=== PATIENT | male | born 1985 | race Caucasian/White ===

== ENCOUNTER 2024-12-01 10:45 | Outpatient (AMB) | payer BC, SELFPAY ==
--- NOTE | 2024-12-01 10:46 | A.OFFPC_ITS ---
Vital Signs 12/01/24 10:56 Height 5 ft 10.28 in Weight 168 lb BMI 23.9 BP 130/86 Blood Pressure Location Rt brachial Position Sitting Respiration 16 Pulse 64 Pulse Source Pulse Oximeter Temp 97.7 F Temp Source Oral Pulse Oximetry (%) 99 Oxygen Delivery Method Room Air Intake Visit Reasons: [employer]-Anxiety and adhd Intake Note: establish care Engineer Internship Required: No Accompanied by: Self / Same As Patient Allergies No Known Allergies Allergy (Verified 12/01/24 10:47) Tobacco use date assessed: 12/01/24 Dental Screening Dental Screen Date: 12/01/24 Did you have a dental visit in the last 12 months?: Yes Did you have a dental problem in the last 6 months where you did not have access to dental care?: No Was dental information given to patient?: Patient has dentist HPI HPI Comments History of Present Illness Details History of Present Illness The patient is a 39-year-old male presenting for a new primary care visit and evaluation of fatigue. Tourette syndrome: - The patient has a history of Tourette syndrome managed with medication on an as-needed basis. - He has not seen his neurologist for a few years but typically checks in for medication refills. Attention Deficit Hyperactivity Disorder (ADHD): - The patient manages ADHD with Ritalin, taken as needed for concentration, particularly during study periods. Fatigue: - The patient reports decreased energy l evels since turning 39, despite maintaining an active lifestyle. - He has requested a testosterone level check to evaluate potential causes of f atigue. Health Maintenance - Comprehensive lab workup including CBC , CMP, lipid panel, hormone levels, and screening for hepatitis B, C, and HIV. - Discussion on the importance of hydrat ion and its impact on energy levels. Review of Systems - Neurological: Reports fatigue and decr eased energy levels. Denies headaches or daytime sleepiness. - Respiratory: Denies snoring or waking up tired. - General: Reports occasional fatigue re lated to hydration status. 10-point ROS reviewed and negative excep t as noted in HPI Past Medical History - Tourette syndrome, managed with medica tion as needed. - Attention Deficit Hyperactivity Disord er (ADHD), managed with Ritalin as needed. Physical Exam General: Well-appearing, in no acute distress. Vital signs: Within normal limits. HEENT: Normocephalic, atraumatic. PERRLA, EOMI. Conjunctiva clear, sclera anicteric. Oropharynx clear, mucous membranes moist. TMs intact bilaterally. Neck: Supple, no lymphadenopathy, no thyromegaly, no JVD or carotid bruits. Cardiovascular: RRR, normal S1/S2, no murmurs, rubs, or gallops. Peripheral pulses 2+ and symmetric. No edema. Respiratory: Lungs clear to auscultation bilaterally, no wheezes, rales, or rhonchi. Normal effort. Abdomen: Soft, non-tender, non-distended. Normoactive bowel sounds. No hepatosplenomegaly, no masses. MSK: Full range of motion, no joint swelling or deformity. Normal gait. Skin: Warm, dry, intact. No rashes, lesions, or pallor. Neuro: Alert and oriented x3. Cranial nerves II-XII intact. Strength 5/5 throughout. Sensation intact. Reflexes 2+ symmetric. Normal coordination and gait. Psych: Appropriate mood and affect. Normal judgment and insight. Discussion Notes I discussed with the patient the plan to conduct a comprehensive lab workup to assess his overall health status, including CBC, CMP, lipid panel, and hormone levels. We also talked about the importance of maintaining hydration and its impact on energy levels. I assured him that I would coordinate any necessary referrals, including to his neurologist, and encouraged him to reach out with any questions or concerns. Plan 1. Tourette's disorder F95.2 - Continue current medication regimen as needed. Coordinate with neurologist for follow-up and medication management. 2. Attention-deficit hyperactivity disor whit[place], unspecified type F90.9 - Continue Ritalin as needed for concent ration. Monitor for any changes in symptoms or medication needs. 3. Other fatigue R53.83 - Conduct comprehensive lab workup inclu ding testosterone levels to evaluate potential causes of fatigue. - Encourage adequate hydration and monit or energy levels. Patient Instructions - Continue taking medications for Touret te syndrome and ADHD as needed. - Stay hydrated to help maintain energy levels. - Follow up with neurologist for medicat ion management. - Complete lab workup as discussed to ev aluate overall health. [facility] Medical History (Updated 12/01/24 @ 11:10 by Jorge Alberto Hayes MD) Fatigue Family History (Updated 12/01/24 @ 10:55 by Jefe Bhatt MA) Father Throat cancer Prostate cancer Mother No problems noted. Social History (Updated 12/01/24 @ 10:48 by Jefe Bhatt MA) Housing: House Alcohol intake: current Alcohol intake frequency: does not drink Patient Tobacco Use Status: Never used Tobacco service: No Current occupational status: employed Cognitive needs: No Hearing needs: No Vision needs: No Questionnaire PHQ-9 Over the last 2 weeks, how often have you been bothered by any of the following problems? 1. Little interest or pleasure in doing things: not at all 2. Feeling down, depressed, or hopeless: not at all 3. Trouble falling or staying asleep, or sleeping too much: not at all 4. Feeling tired or having little energy: several days 5. Poor appetite or overeating: not at all 6. Feeling bad about yourself - or that you are a failure or have let yourself or your family down: not at all 7. Trouble concentrating on things, such as reading the newspaper or watching television: not at all 8. Moving or speaking so slowly that other people could have noticed. Or the opposite - being so fidgety or restless that you have been moving around a lot more than usual: not at all 9. Thoughts that you would be better off or of hurting yourself in some way: not at all Total score: 1 Source: Developed by Drs. Collin Mccartney, Paloma Anthony, Donald Campuzano and colleagues, with an educational sandro from [employer]. Thrive Questionnaire Date Thrive assessed: 12/01/24 I am a: Patient What is your living situation today?: I have a steady place to live Within the past 12 months, did the food you bought not last and you didn't have the money to get more?: Never true Within the past 12 months, did you worry whether your food would run out before you got money to buy more?: Never true Do you have trouble paying for medicines?: No Do you have trouble getting transportation to medical appointments?: No Do you have trouble paying your heating and electricity bill?: No Do you have trouble taking care of your child, family member or friend?: No Do you have trouble with day-to-day activities such as bathing, preparing meals, shopping, managing finances, etc.?: No Are you currently unemployed and looking for a job?: No Are you interested in more education?: No Please select the resources that you would like help with: None Currently or been in a relationship where the following occur: No concerns reported THRIVE Score: 0 AUDIT C Alcohol Use Questionnaire (AUDIT-C) 1. How often do you have a drink containing alcohol?: Never 3. How often do you have six or more drinks on one occasion?: Never Total Score: 0 OTTO-7 AMB Questionnaire OTTO-7 Date OTTO - 7 assessed: 12/01/24 Feeling nervous, anxious, or on edge: 0 = Not at all Not being able to stop or control worryin = Not at all Worrying too much about different things: 0 = Not at all Trouble relaxin = Not at all Being so restless that it is hard to sit still: 0 = Not at all Becoming easily annoyed or irritable: 0 = Not at all Feeling afraid as if something awful might happen: 0 = Not at all Total OTTO-7 score (0-4 normal; 5-9 mild; 10-14 moderate; 15-21 severe): 0 Source: Developed by Drs. Collin Mccartney, Paloma Anthony, Donald Campuzano and colleagues, with an educational sandro from [employer]. Physical exam (Primary Care) Tobacco/Smoking Status: Tobacco use Status Patient Tobacco Use Status Never used Tobacco 12/01/24 10:48 Thrive Assessment: Date of Thrive Assessment Date Thrive assessed 11/28/24 11/28/24 14:41 Currently or been in a relationship where the following occur: No concerns reported Coding Level of Care Code New Pt Level 3 (18948) Diagnoses Encounter to establish care Z76.89 Encounter for screening, unspecified Z13.9 Screening for depression Z13.31 Screening for diabetes mellitus Z13.1 Screening for lipoid disorders Z13.220 Routine screening for STI (sexually transmitted infection) Z11.3 Screening for HIV (human immunodeficiency virus) Z11.4 Hypertension screen Z13.6 Counseling, unspecified Z71.9 Fatigue R53.83 Tourettes disorder F95.2 ADHD (attention deficit hyperactivity disorder) F90.9 Assessment & Plan Assessment & Plan (1) Encounter to establish care: Code(s): Z76.89 - Persons encountering health services in other specified circumstances (2) Encounter for screening, unspecified: Code(s): Z13.9 - Encounter for screening, unspecified (3) Screening for depression: Code(s): Z13.31 - Encounter for screening for depression (4) Screening for diabetes mellitus: Code(s): Z13.1 - Encounter for screening for diabetes mellitus (5) Screening for lipoid disorders: Code(s): Z13.220 - Encounter for screening for lipoid disorders (6) Routine screening for STI (sexually transmitted infection): Code(s): Z11.3 - Encounter for screening for infections with a predominantly sexual mode of transmission (7) Screening for HIV (human immunodeficiency virus): Code(s): Z11.4 - Encounter for screening for human immunodeficiency virus [HIV] (8) Hypertension screen: Code(s): Z13.6 - Encounter for screening for cardiovascular disorders (9) Counseling, unspecified: Code(s): Z71.9 - Counseling, unspecified (10) Fatigue: Code(s): R53.83 - Other fatigue Category: Medical (11) Tourettes disorder: Code(s): F95.2 - Tourette's disorder (12) ADHD (attention deficit hyperactivity disorder): Code(s): F90.9 - Attention-deficit hyperactivity disorder, unspecified type Plan Orders: Orders Comprehensive Met. Panel Today R53.83 - Other fatigue, Z13.9 - Encounter for screening, unspecified, Z76.89 - Persons encountering health services in other specified circumstances Hepatitis B Surface Antibody Today R53.83 - Other fatigue, Z13.9 - Encounter for screening, unspecified, Z76.89 - Persons encountering health services in other specified circumstances Hepatitis B Surface Antigen Today R53.83 - Other fatigue, Z13.9 - Encounter for screening, unspecified, Z76.89 - Persons encountering health services in other specified circumstances HIV Ab/Ag Today R53.83 - Other fatigue, Z13.9 - Encounter for screening, unspecified, Z76.89 - Persons encountering health services in other specified circumstances Magnesium Today R53.83 - Other fatigue, Z13.9 - Encounter for screening, unspecified, Z76.89 - Persons encountering health services in other specified circumstances UA CC w/rflx Micro + Cult Today R53.83 - Other fatigue, Z13.9 - Encounter for screening, unspecified, Z76.89 - Persons encountering health services in other specified circumstances TSH reflex Free T4 Today R53.83 - Other fatigue, Z13.9 - Encounter for screening, unspecified, Z76.89 - Persons encountering health services in other specified circumstances Complete Blood Count Auto Diff Today R53.83 - Other fatigue, Z13.9 - Encounter for screening, unspecified, Z76.89 - Persons encountering health services in other specified circumstances Hemoglobin A1c Today R53.83 - Other fatigue, Z13.9 - Encounter for screening, unspecified, Z76.89 - Persons encountering health services in other specified circumstances Hepatitis C Antibody Today R53.83 - Other fatigue, Z13.9 - Encounter for screening, unspecified, Z76.89 - Persons encountering health services in other specified circumstances Lipid Panel Today R53.83 - Other fatigue, Z13.9 - Encounter for screening, unspecified, Z76.89 - Persons encountering health services in other specified circumstances Vitamin B12 and Folate Today R53.83 - Other fatigue, Z13.9 - Encounter for screening, unspecified, Z76.89 - Persons encountering health services in other specified circumstances Vitamin D 1,25 dihydroxy Today R53.83 - Other fatigue, Z13.9 - Encounter for screening, unspecified, Z76.89 - Persons encountering health services in other specified circumstances Testosterone, Free/Total Today R53.83 - Other fatigue, Z13.9 - Encounter for screening, unspecified, Z76.89 - Persons encountering health services in other specified circumstances
[2024-12-01 10:56] VITALS: BP 130/86; PULSE 64; RESP 16; TEMP 36.5; O2SAT 99; BMI 23.9
--- OUTSIDE RECORDS SUMMARY | 2024-12-01 12:53 | XMS_ITS | Encounter Summary ---
Author Organization [facility] Address [address] [place] [address] Phone Care Team Providers Care Lime Trimmer Name Role Phone Bob Duvall MD Unavailable [phone] Bob Duvall MD Primary Care Provider [phone] Bob Duvall MD Unavailable [phone] Encounter Details Date Type Department Care Team (Latest Contact Info) Description 12/19/2021 Transcribe Orders [facility] Laboratory 10 [facility] 2nd [place] [address] Glenny Olivares PA-C [address] [place], [place] [id number] Elevated LFTs (Primary Dx) Social History Tobacco Use Types Packs/Day Years Used Date Smoking Tobacco: Never Smokeless Tobacco: Never Alcohol Use Standard Drinks/Week Comments Not Currently 0 (1 standard drink = 0.6 oz pur e alcohol) Child or Family Care Answer Date Record ed Do you have problems with on e of the following making it difficult for you to work, study, or receive health care? No 08/21/2020 Education Answer Date Recorded Are you interested in help w ith more adult education (for example, completing high school, GED, job training, learning the Uruguayan language, technical skills, or developing parenting skills)? No 08/21/2020 Food Answer Date Recorded Within the past 6 months we worried whether our food would run out before we got money to buy more. Never True 08/21/2020 Within the past 6 months the food we bought just didn't last and we didn't have enough money to get more. Never True Residential Stability Answer Date Recor ded What is your housing situation today? I have kindra maldonado 08/21/2020 How many times have you move d in the past 12 months? Zero (I did not move) 08/21/2020 06 Are you worried that in t he next 2 months, you may not have your own housing to live in? No 08/21/2020 Paying for Meds Answer Date Recorded Do you have trouble paying for medicines? No 08/21/2020 Paying Utility Bills Answer Date Record ed Do you have trouble paying your heating or elect ricity bill? No 08/21/2020 Transportation Answer Date Recorded Has the lack of transportati on kept you from medical appointments or from getting medications? No 08/21/2020 Unemployment Answer Date Recorded Are you currently unemployed or working on a part-time or temporary basis, and looking for work? No 08/21/2020 Sex and Gender Information Value Date Recorded Sex Assigned at Not on file Legal Sex Male 9:15 PM EDT Gender Identity Not on file Sexual Orientation Not on file documented as of this encounter Plan of Treatment Not on file documented as of this encounter Results * (ABNORMAL) Copper, 24 hr urine (12/26/2021 6:40 AM EDT) UR TIMED COPPER <5(L) 9 - 71 mcg/24 h [facility] LAB MED/PATH SUPERIOR COLLECTION DURATION 24 h [facility] LAB MED/PATH SUPERIOR TOTAL VOLUME 3,000 mL [facility] LAB MED/PATH SUPERIOR Comment: (NOTE) ADDITIONAL INFORMATION This test was developed and its performance characteristics determined by [facility] in a manner consistent with CLIA requirements. This test has not been cleared or approved by the U.S. Food and Drug Administration. Urine (Urine) 12/26/2021 6:4 0 AM EDT 12/27/2021 8:10 AM EDT us Glenny Olivares PA-C URINE ORDERABLES Final Result [facility]PATH [facility]IOR [address] [address] * TSH (12/19/2021 1:51 PM EDT) Pathologist [facility] TSH 0.84 0.27 - 4.20 uIU/mL [facility] Blood 12/19/2021 1:51 PM EDT 12/19/2021 1:58 PM EDT us Glenny Olivares PA-C LAB BLOOD ORDERABLES Final Resu lt Performing Organization Address [facility]/ZIP Co de Phone Number [address] [address] * Iron and iron binding capacity (12/19/2021 1:51 PM EDT) [facility] IRON 113 45 - 160 ug/dL [facility] IRON BINDING CAPACITY 270 228 - 428 ug/dL [facility] TRANSFERRIN SATURAT. 42 20 - 55 % [facility] Blood 12/19/2021 1:51 PM EDT 12/19/2021 1:58 PM EDT us Glenny Olivares PA-C LAB BLOOD ORDERABLES Final Resu lt Performing Organization Address [facility]/ZIP Co de Phone Number [address] [address] * (ABNORMAL) Comprehensive metabolic panel (12/19/2021 1:51 PM EDT) [facility] SODIUM 143 133 - 146 mmol/L [facility] POTASSIUM 3.8 3.3 - 5.1 mmol/L [facility] CHLORIDE 104 96 - 108 mmol/L [facility] CO2 30 21 - 35 mmol/L [facility] BUN 14 6 - 19 mg/dL [facility] CREATININE 0.80 0.5 - 1.5 mg/dL [facility] GLUCOSE 73 70 - 99 mg/dL [facility] ALBUMIN 4.9(H) 3.9 - 4.8 g/dL [facility] TOTAL PROTEIN 7.0 6.5 - 8.0 g/dL [facility] CALCIUM 9.7 8.4 - 10.3 mg/dL [facility] ALKALINE PHOSPHATASE 68 39 - 117 U/L [facility] TOTAL BILIRUBIN 3.5(H) 0.0 - 1.2 mg/dL [facility] AST 37 0 - 37 U/L [facility] ALT 28 0 - 40 U/L [facility] GLOBULIN 2.1 1 - 4.8 g/dL [facility] EGFR 117 >59 mL/min/1.7 3m2 [facility] Comment:Estimated glomerular filtration rate calculated using the CKD-EPI refit equation. ANION GAP 13 10 - 20 mmol/L [facility] Blood 12/19/2021 1:51 PM EDT 12/19/2021 1:58 PM EDT us Glenny Olivares PA-C LAB BLOOD ORDERABLES Final Resu lt Performing Organization Address City/State/[facility] Co de Phone Number [address] [address] * (ABNORMAL) Liver fibrosis test (12/19/2021 1:51 PM EDT) Fibrosis score 0.35 [facility] Interpretation (Fibrosis) SEE NOTE [facility] Comment: (NOTE) minimal fibrosis Fibro Test Score (f) Metavir Score f>=0 and f<=0.21 : F0 (no fibrosis) f>0.21 and f<=0.27 : F0-F1 (no fibrosis) f>0.27 and f<=0.31 : F1 (minimal fibrosis) f>0.31 and f<=0.48 : F1-F2 (minimal fibrosis) f>0.48 and f<=0.58 : F2 (moderate fibrosis) f>0.58 and f<=0.72 : F3 (advanced fibrosis) f>0.72 and f<=0.74 : F3-F4 (advanced fibrosis) f>0.74 and f<=1.00 : F4 (severe fibrosis) HCV Fibrosis Grade SEE NOTE Q [facility] Comment: (NOTE) Result: F1-F2 NECROINFLAMM SCORE 0.13 Q [facility] NECROINFLAMM GRADE A0 Q [facility] NECROINFLAMM INTERP SEE NOTE [facility]/ [facility] Comment: (NOTE) no activity ActiTest Score (a) Metavir Score a>=0 and a<=0.17 : A0 (no activity) a>0.17 and a<=0.29 : A0-A1 (no activity) a>0.29 and a<=0.36 : A1 (minimal activity) a>0.36 and a<=0.52 : A1-A2 (minimal activity) a>0.52 and a<=0.60 : A2 (significant activity) a>0.60 and a<=0.62 : A2-A3 (significant activity) a>0.62 and a<=1.00 : A3 (severe activity) A2 Macroglobulin 199 106 - 279 mg/dL [facility]/ [facility] Haptoglobin 92 43 - 212 mg/dL [facility] Apolipoprotein A1 163 94 - 176 mg/dL [facility]/ [facility] TOTAL BILIRUBIN 3.8(H) 0.2 - 1.2 mg/dL [facility]/ [facility] Comment: (NOTE) Suspicion of Gilbert syndrome or hemolysis, check non conjugated bilirubin. GGT 9 3 - 90 U/L [facility]/ [facility] Comment: (NOTE) Suspicion of Gilbert syndrome or hemolysis, check non conjugated bilirubin. ALT 26 9 - 46 U/L [facility]/ [facility] Specimen/Product ID [id number] [facility]/ [facility] Comments (Chemistry) SEE NOTE [facility]/ [facility] Comment: (NOTE) The reliability of results is dependent on compliance with the preanalytical and analytical conditions recommended by [employer]. The tests have to be deferred for: acute hemolysis, acute hepatitis, acute inflammation, extra hepatic cholestasis. The advice of a specialist should be sought for interpretation in chronic hemolysis and Gilbert's syndrome. The test interpretation is not validated in liver transplant patients. Isolated extreme values of one of the components should lead to caution in interpreting the results. In case of discordance between a biopsy result and a test, it is recommended to seek the advice of a specialist. The causes of these discordances could be due to a flaw of the test or to a flaw in the biopsy: i.e. a liver biopsy has a 33% variability rate for one fibrosis stage. FibroTest is interpretable for chronic hepatitis B and C, alcoholic and non alcoholic steatosis. ActiTest is interpretable for chronic hepatitis B and C. The performance characteristics have been determined by [facility]. It has not been cleared or approved by the U.S. Food and Drug Administration. Performance characteristics refer to the analytical performance of the test. Cinnamon, the associated logo, Flipter and all associated [employer] are the registered trademarks of [employer]. All third libertarian garduno - (R) and (TM) - are the property of their respective owners. (C) [id number] [employer]. All rights reserved. Blood 12/19/2021 1:51 PM EDT 12/19/2021 1:58 PM EDT Glenny Olivares PA-C LAB BLOOD ORDERABLES Final Resu lt [employer] [facility] [address] [place] [address], [facility] * (ABNORMAL) Ceruloplasmin (12/19/2021 1:51 PM EDT) CERULOPLASMIN 16(L) 20 - 60 mg/dL [facility] Blood 12/19/2021 1:51 PM EDT 12/19/2021 1:58 PM EDT Glenny ROME-Senia LAB BLOOD ORDERABLES Final Resu lt [facility] [address] [place] [address] * Immunoglobulin A (12/19/2021 1:51 PM EDT) IgA 268 70 - 400 mg/dL [facility] Blood 12/19/2021 1:51 PM EDT 12/19/2021 1:58 PM EDT us Glenny Olivares PA-C LAB BLOOD ORDERABLES Final Resu lt [facility] [address] [place] [address] * Tissue transglutaminase IgA (12/19/2021 1:51 PM EDT) TTG IGA ANTIBODY <1.2 <4.0 (Negative) U/mL [facility] Blood 12/19/2021 1:51 PM EDT 12/19/2021 1:58 PM EDT us Glenny Olivares PA-C LAB BLOOD ORDERABLES Final Resu lt Performing Organization Address [facility] Co de Phone Number [facility]/PATH [address] [place] [address] * Smooth Muscle Antibody (12/19/2021 1:51 PM EDT) SMOOTH MUSCLE AB POSITIVE AT 1:80 [facility] Comment: Performing Physician, Klaus García M.D., [id number] Normal: Negative at 1:20 Blood 12/19/2021 1:51 PM EDT 12/19/2021 1:58 PM EDT Glenny Olivares PA-C LAB BLOOD ORDERABLES Final Resu lt Performing Organization Address City/[facility]/ZIP Co de Phone Number [address] [address] * Ytydl-6-gcydvpmkxgq phenotyping (12/19/2021 1:51 PM EDT) ALPHA 1 ANTITRYPSIN 127 100 - 190 mg/dL [facility]PATH [facility]IOR Comment: (NOTE) ADDITIONAL INFORMATION Method: Nephelometry A1A PHENOTYPE MM bands [facility] LAB MED/PATH SUPERIOR Comment: (NOTE) A single M isoform is detected. In the context of a normal ejajc-8-zsyojddksiu concentration, this is consistent with an MM phenotype. ADDITIONAL INFORMATION Method: Isoelectric Focusing, This assay identifies the phenotype of the circulating prkuf-2-bpqtvmtpwlc (A1A) protein. If the patient is on replacement therapy or has been recently transfused, the phenotype will detect patient and replacement or transfused plasma A1A protein. This test also cannot detect a null allele which could be responsible for an A1A deficiency. Blood 12/19/2021 1:51 PM EDT 12/19/2021 1:58 PM EDT us Glenny Olivares PA-C LAB BLOOD ORDERABLES Final Resu lt [facility]/PATH [facility] [address] [place] [address] documented in this encounter Visit Diagnoses Diagnosis Elevated LFTs- Primary Other abnormal blood chemistry documented in this encounter Additional Health Concerns Assessment Noted Time PHQ-2 Depression Total Score: 0 08/19/19 22 9:00 AM EDT documented as of this encounter Care Teams Lime Trimmer Relationship Specialty Start Date End Date Bob Duvall MD [address] [place] [address], [address] [address] PCP - General 12/29/16 10/20/24 Bob Duvall MD [address] [place] [address], [address] [place] [address] Historical LMR Provider 12/29/16 10/20/24 Bob Duvall MD [address] [place] [address], [address] [place] [address] Insurance Assigned Provider 07/19/22 documented as of this encounter Additional Source Comments The information contained in this document represents components of the legal health record. It is not the complete legal health record.[facility]
--- OUTSIDE RECORDS SUMMARY | 2024-12-01 12:53 | XMS_ITS | Encounter Summary ---
Author Organization [facility] Address [address] [place] [address] Phone Care Team Providers Care Correctional Counselor Name Role Phone Bob Duvall MD Unavailable [phone] Bob Duvall MD Primary Care Provider [phone] Bob Duvall MD Unavailable [phone] Encounter Details Date Type Department Care Team (Latest Contact Info) Description 02/10/2022 Transcribe Orders [facility] Laboratory [address] 2[address] Floor [place], [place] [id number] Guy Huntley MD [address] [facility] 2 [place], [place] [phone] [email or web address] Gilbert's syndrome (Primary Dx) Social History Tobacco Use Types [...] high school, GED, job training, learning the Georgian language, technical skills, or developing parenting skills)? [...] documented as of this encounter Results * LDH (02/17/2022 7:51 AM EST) LDH 138 118 - 273 U/L [facility] Blood 02/17/2022 7:51 AM EST 02/17/2022 7:56 AM EST us Guy Huntley MD LAB BLOOD ORDERABLES Final R esult [facility] [address] [place] [address] * C-Reactive Protein (02/17/2022 7:51 AM EST) C REACTIVE PROTEIN <3.0 0.0 - 4.0 mg/L [facility] Blood 02/17/2022 7:51 AM EST 02/17/2022 7:56 AM EST us Guy Huntley MD LAB BLOOD ORDERABLES Final R esult [address] [address] * (ABNORMAL) Comprehensive metabolic panel (02/17/2022 7:51 AM EST) SODIUM 142 133 - 146 mmol/L [facility] POTASSIUM 4.3 3.3 - 5.1 mmol/L [facility] CHLORIDE 103 96 - 108 mmol/L [facility] CO2 30 21 - 35 mmol/L [facility] BUN 10 6 - 19 mg/dL [facility] CREATININE 0.80 0.5 - 1.5 mg/dL [facility] GLUCOSE 94 70 - 99 mg/dL [facility] ALBUMIN 4.5 3.9 - 4.8 g/dL [facility] TOTAL PROTEIN 6.9 6.5 - 8.0 g/dL [facility] CALCIUM 9.6 8.4 - 10.3 mg/dL [facility] ALKALINE PHOSPHATASE 62 39 - 117 U/L [facility] TOTAL BILIRUBIN 2.5(H) 0.0 - 1.2 mg/dL [facility] AST 23 0 - 37 U/L [facility] ALT 26 0 - 40 U/L [facility] GLOBULIN 2.4 1 - 4.8 g/dL [facility] EGFR 117 >59 mL/min/1.7 3m2 [facility] Comment:Estimated glomerular filtration rate calculated using the CKD-EPI refit equation. ANION GAP 13 10 - 20 mmol/L [facility] Blood 02/17/2022 7:51 AM EST 02/17/2022 7:56 AM EST us Guy Huntley MD LAB BLOOD ORDERABLES Final R esult [address] [address] * Miscellaneous lab test (02/10/2022 2:51 PM EST) TESTS REQUESTED [facility] SPECIMEN/TUBE TYPE LAV [facility] REQUEST RECEIVED Request received. A separate order for the requested test will be generated by the laboratory. [facility] Blood 02/10/2022 2:51 PM EST 02/10/2022 3:09 PM EST Guy Huntley MD LAB BLOOD ORDERABLES Final R esult Performing Organization Address [facility] Co de Phone Number [facility] [address] [place] [address] * Haptoglobin (02/10/2022 2:51 PM EST) HAPTOGLOBIN 71 30 - 200 mg/dL [facility] Blood 02/10/2022 2:51 PM EST 02/10/2022 2:57 PM EST Guy Huntley MD LAB BLOOD ORDERABLES Final R esult Performing Organization Address [facility] Co de Phone Number [address] [address] * Direct Hermelinda (02/10/2022 2:51 PM EST) Direct Hermelinda Poly Negative [facility] Resulting Agency [facility] Blood 02/10/2022 2:51 PM EST 02/10/2022 3:10 PM EST Guy Huntley MD BLOOD BANK TEST ORDERABLES F inal Result Performing Organization Address [facility] Co de Phone Number [facility] [address] [place] [address] * (ABNORMAL) Copper, blood (02/10/2022 2:51 PM EST) Copper, serum 70(L) 73 - 129 mcg/dL [facility] MED[facility] Comment: (NOTE) ADDITIONAL INFORMATION This test was developed and its performance characteristics determined by [facility] in a manner consistent with CLIA requirements. This test has not been cleared or approved by the U.S. Food and Drug Administration. Blood 02/10/2022 2:51 PM EST 02/10/2022 3:09 PM EST Guy Huntley MD LAB BLOOD ORDERABLES Final R [facility] [address] [place] [address] * CBC (02/10/2022 2:51 PM EST) WBC 6.78 4.00 - 11.00 K/uL [facility] RBC 4.70 4.23 - 5.82 M/uL [facility] HGB 14.7 13.4 - 17.5 g/dL [facility] HCT 44.3 37.0 - 51.0 % [facility] PLT 326 140 - 430 K/uL [facility] MCV 94.3 78.0 - 97.0 fL [facility] MCH 31.3 25.0 - 33.0 pg [facility] MCHC 33.2 32.0 - 36.0 g/dL [facility] RDW 11.6 11.0 - 15.0 % [facility] MPV 10.9 8.4 - 12.8 fl [facility] Blood 02/10/2022 2:51 PM EST 02/10/2022 3:09 PM EST us Guy Huntley MD LAB BLOOD ORDERABLES Final R esult [facility] [address] [place] [address] * Reticulocytes (02/10/2022 2:51 PM EST) RETIC (%) 1.9 0.6 - 1.9 % [facility] RETIC (ABSOLUTE) 0.0893 0.0260 - 0.0950 M/uL [facility] RETIC HGB EQUIV 35.3 30.6 - 40.7 pg [facility] Retics, immature(%) 5.9 2.3 - 13.4 % [facility] Blood 02/10/2022 2:51 PM EST 02/10/2022 3:09 PM EST us Guy Huntley MD LAB BLOOD ORDERABLES Final R esult [facility] [address] [place] [address] documented in this encounter Visit Diagnoses Diagnosis Gilbert's syndrome- Primary Disorders of bilirubin excretion documented in this encounter Additional Health Concerns Assessment Noted Time PHQ-2 Depression Total Score: 0 08/19/19 22 9:00 AM EDT documented as of this encounter Care Teams Correctional Counselor Relationship Specialty Start Date End Date Bob Duvall MD [facility], [address] [place] [address] PCP - General 12/29/16 10/20/24 Bob Duvall MD [facility], [address] [address] Historical LMR Provider 12/29/16 10/20/24 Bob Duvall MD [address] [place] [address], [address] [address] Insurance Assigned Provider 07/19/22 documented as of this encounter Additional Source Comments The information contained in this document represents components of the legal health record. It is not the complete legal health record.[facility]
--- OUTSIDE RECORDS SUMMARY | 2024-12-01 12:53 | XMS_ITS | Encounter Summary ---
Author Organization [facility] Address [address] [address] Phone Care Team Providers Care Landfill Gas Collection Operator Name Role Phone Bob Duvall MD Unavailable [phone] Bob Duvall MD Primary Care Provider [phone] Bob Duvall MD Unavailable [phone] Encounter Details Date Type Department Care Team (Late st Contact Info) Description 12/27/2021 Transcribe Orders [facility] Specimen Processing [address] [place] [address] Glenny Olivares PA-C [address] [id number] [email or web address] Social History Tobacco Use Types Packs/Day Years [...] high school, GED, job training, learning the Sudanese language, technical skills, or developing parenting skills)? [...] on file documented as of this encounter Visit Diagnoses Not on filedocumented in this encounter Additional Health Concerns Assessment Noted Time PHQ-2 Depression Total Score: 0 08/19/19 22 9:00 AM EDT documented as of this encounter Care Teams Landfill Gas Collection Operator Relationship Specialty Start Date End Date Bob Duvall MD [address] [place] [address], [address] [place] [address] PCP - General 12/29/16 10/20/24 Bob Duvall MD [address] [place] [address], [address] [place] [address] Historical LMR Provider 12/29/16 10/20/24 Bob Duvall MD [address] [place] [address], [address] [place] [address] [email or web address] Insurance Assigned Provider 07/19/22 documented as of this encounter Additional Source Comments The information contained in this document represents components of the legal health record. It is not the complete legal health record.[facility]
== END 2024-12-01 11:14 | disposition home or self-care (01) ==
PROVIDERS: PCP Student in an Organized Health Care Education/Training Program; Visit Provider Student in an Organized Health Care Education/Training Program
DX: R53.83 Other fatigue (principal); F95.2 Tourette's disorder; F90.9 Attention-deficit hyperactivity disorder, unspecified type

== ENCOUNTER 2024-12-02 07:32 | Outpatient (REF) | payer BC, SELFPAY ==
[2024-12-02 11:21] LABS: MANUAL DIFF FLAG NO
[2024-12-02 11:25] LABS: Hematocrit 39.4 % (42.0-52.0); Hemoglobin 13.8 g/dl (14.0-18.0); Imm Gran Abs Auto 0.01 X10*3/uL (0.00-0.03); Imm Gran Pct Auto 0.3 % (0.0-0.4); Lymphocytes Absolute Auto 1.2 X10*3/uL (1.2-4.9); Mean Corpuscular HGB Conc 35.0 g/dl (31.0-36.0); Mean Corpuscular Hemoglobin 31.2 pg (27.0-33.0); Mean Corpuscular Volume 88.9 fL (80.0-98.0); NRBC Abs Auto 0.000 X10*3/uL (0.0-0.012); NRBC Pct Auto 0.0 /100WBC (0.0-0.2); Platelet Count 278 X10*3/uL (160-400); Red Blood Count 4.43 X10*6/uL (4.60-5.80); White Blood Count 3.8 X10*3/uL (4.8-10.8)
[2024-12-02 11:35] LABS: Hemoglobin A1C 95.3447 umol/L; Total Hemoglobin (HGBA1C) 3588.0076 umol/L
[2024-12-02 11:42] LABS: Appearance Urine Clear; Glucose Urine UA Negative (Negative); PH 7.5 (5.0-9.0); Specific Gravity - Urine <= 1.005 (1.005-1.025)
[2024-12-02 11:48] LABS: Alanine Aminotransferase 31 U/L (0-40); Albumin Level 4.7 g/dL (3.5-5.0); Alkaline Phosphatase 62 U/L (39-117); Anion Gap 8 (12-20); Aspartate Amino Transferase 29 U/L (5-37); Blood Urea Nitrogen 16 mg/dL (9-16); Calcium 9.4 mg/dL (8.4-10.2); Carbon Dioxide 31 mmol/L (22-29); Chloride 103 mmol/L (96-108); Cholesterol 136 mg/dL (<200); Estimated Glomerular Filt Rate > 60; HDL Cholesterol 46 mg/dL (>40); Magnesium 2.1 mg/dL (1.6-2.6); Potassium 4.2 mmol/L (3.3-5.1); Sodium 138 mmol/L (135-145); Total Protein 7.0 g/dL (6.5-8.0); Triglycerides 106 mg/dL (<150)
[2024-12-02 12:00] LABS: HBS Num1 > 1000.00 mIU/mL (0-7.99); HBsAGNum1 0.41 S/CO (0.00-0.99); HIV Num 1 0.05 S/CO (0.00-0.99); Hepatitis B Surface Antigen Negative (Negative); ~HepC Num1 0.13 S/CO (0.00-0.79); ~Hepatitis B Surface Antibody REACTIVE (Nonreactive); ~Hepatitis C Antibody Nonreactive (Nonreactive)
[2024-12-02 12:10] LABS: Folate 5.6 ng/mL (> or = 4.0); Vitamin B12 279 pg/mL (200-900)
[2024-12-07 07:23] LABS: VITAMIN D (1,25 OH) D3 52 pg/mL; Vit D (1,25-Dihydroxy) Total 52 pg/mL (18-72); Vitamin D (1,25 OH) D2 <8 pg/mL
[2024-12-08 10:33] LABS: Testosterone, Free 65.1 pg/mL (35.0-155.0)
== END 2024-12-02 07:33 | disposition home or self-care (01) ==
LOC: HO.WFDLDS 07:32
PROVIDERS: Visit Provider Student in an Organized Health Care Education/Training Program
DX: R53.83 Other fatigue (principal); Z13.6 Encounter for screening for cardiovascular disorders; Z11.4 Encounter for screening for human immunodeficiency virus [HIV]; Z13.1 Encounter for screening for diabetes mellitus; Z76.89 Persons encountering health services in other specified circumstances
CPT/HCPCS: 36415; 80053; 80061; 81003; 82607; 82652; 82746; 83036; 83735; 84402; 84403; 84443; 85025; 86706; 86803; 87340; 87389

== ENCOUNTER 2024-12-19 08:31 | Outpatient (AMB) | payer BC, SELFPAY ==
[2024-12-19 08:36] VITALS: BP 128/78; PULSE 71; RESP 20; TEMP 36.2; BMI 24.1
--- NOTE | 2024-12-19 08:36 | MHC.PC.OV ---
Vital Signs 12/19/24 08:36 Height 5 ft 10.28 in Weight 169 lb BMI 24.1 BP 128/78 Blood Pressure Location Rt brachial Position Sitting Respiration 20 Pulse 71 Pulse Source Pulse Oximeter Temp 97.1 F Temp Source Oral Intake Visit Reasons: follow up labs Intake Note: establish care Cattle Knocker Required: No Accompanied by: Self / Same As Patient Allergies No Known Allergies Allergy (Verified 12/19/24 08:37) Tobacco use date assessed: 12/19/24 Dental Screening Dental Screen Date: 12/19/24 Did you have a dental visit in the last 12 months?: Yes Did you have a dental problem in the last 6 months where you did not have access to dental care?: No Was dental information given to patient?: Patient has dentist HPI HPI Comments History of Present Illness Details History of Present Illness The patient is a 39-year-old male presenting for a review of test results and discussion regarding supplementation. Gilbert's Syndrome: - Persistent elevated bilirubin levels without symptomatic burden; condition is benign and has remained stable over time. Low Blood Counts: - Longstanding pattern of reduced blood counts, not associated with symptomatic declines or deviations from usual health status. Review of Systems - General: Reports improved sleep and energy levels with minimal supplementation. - Cardiovascular: Denies any recent changes in blood pressure or related symptoms. 10-point ROS reviewed and negative except as noted in HPI Past Medical History - Attention Deficit Hyperactivity Disorder (ADHD) - Tourette's Syndrome - Anxiety Disorder - Gilbert's Syndrome Health Maintenance - Hepatitis B vaccination confirmed with reactive hepatitis B surface antibody. Physical Exam General: Well-appearing, in no acute distress. Vital signs: Within normal limits. Blood pressure monitoring recommended. HEENT: Normocephalic, atraumatic. PERRLA, EOMI. Conjunctiva clear, sclera anicteric. Oropharynx clear, mucous membranes moist. TMs intact bilaterally. Neck: Supple, no lymphadenopathy, no thyromegaly, no JVD or carotid bruits. Cardiovascular: RRR, normal S1/S2, no murmurs, rubs, or gallops. Peripheral pulses 2+ and symmetric. No edema. Respiratory: Lungs clear to auscultation bilaterally, no wheezes, rales, or rhonchi. Normal effort. Abdomen: Soft, non-tender, non-distended. Normoactive bowel sounds. No hepatosplenomegaly, no masses. MSK: Full range of motion, no joint swelling or deformity. Normal gait. Skin: Warm, dry, intact. No rashes, lesions, or pallor. Neuro: Alert and oriented x3. Cranial nerves II-XII intact. Strength 5/5 throughout. Sensation intact. Reflexes 2+ symmetric. Normal coordination and gait. Psych: Appropriate mood and affect. Normal judgment and insight. Plan 1. Gilbert's Syndrome - Maintain reassurance of benign condition and observe bilirubin levels if symptomatic changes arise. 2. Low Blood Counts - Continue standard blood count monitoring protocol with routine assessments due to established stability. Discussion Notes I discussed with the patient the management and monitoring plan for his conditions. We reviewed the test results which confirm stable conditions of Gilbert's Syndrome and chronic low blood counts. We also explored the option of trialing testosterone supplementation to potentially improve energy levels, advising regular monitoring of blood pressure Monitoring strategies and follow-up visit plans were outlined, with particular emphasis on observing the effects of supplementation. We concluded with mutual agreement to evaluate the outcomes before incorporating any changes into his long-term treatment plan. Patient was informed and verbally consented to the use of an ambient scribe for clinic note documentation during this visit. Patient Instructions - Begin testosterone supplement trial as discussed. - Monitor your blood pressure at home and record results. - Stay aware of any new symptoms or changes and report them. - Continue with routine health check-ups and vaccinations. - Schedule a follow-up appointment in two weeks to discuss supplementation effects. Total time spent caring for the patient today was 45 minutes. This includes time spent before the visit reviewing the chart, time spent documenting, and time spent reviewing laboratory results, medications, performing a medically necessary evaluation, counseling on diagnoses, care coordination. [facility] Medical History Fatigue Family History Father Throat cancer Prostate cancer Mother No problems noted. Social History Housing: House Alcohol intake: current Alcohol intake frequency: does not drink Patient Tobacco Use Status: Never used Tobacco Tobacco use type: Cigar service: No Current occupational status: employed Cognitive needs: No Hearing needs: No Vision needs: No Questionnaire PHQ-9 Over the last 2 weeks, how often have you been bothered by any of the following problems? 1. Little interest or pleasure in doing things: not at all 2. Feeling down, depressed, or hopeless: not at all 3. Trouble falling or staying asleep, or sleeping too much: not at all 4. Feeling tired or having little energy: several days 5. Poor appetite or overeating: not at all 6. Feeling bad about yourself - or that you are a failure or have let yourself or your family down: not at all 7. Trouble concentrating on things, such as reading the newspaper or watching television: not at all 8. Moving or speaking so slowly that other people could have noticed. Or the opposite - being so fidgety or restless that you have been moving around a lot more than usual: not at all 9. Thoughts that you would be better off or of hurting yourself in some way: not at all Total score: 1 Source: Developed by Drs. Collin Mccartney, Paloma Anthony, Donald Campuzano and colleagues, with an educational sandro from [employer]. Thrive Questionnaire Date Thrive assessed: 12/19/24 I am a: Patient What is your living situation today?: I have a steady place to live Within the past 12 months, did the food you bought not last and you didn't have the money to get more?: Never true Within the past 12 months, did you worry whether your food would run out before you got money to buy more?: Never true Do you have trouble paying for medicines?: No Do you have trouble getting transportation to medical appointments?: No Do you have trouble paying your heating and electricity bill?: No Do you have trouble taking care of your child, family member or friend?: No Do you have trouble with day-to-day activities such as bathing, preparing meals, shopping, managing finances, etc.?: No Are you currently unemployed and looking for a job?: No Are you interested in more education?: No Please select the resources that you would like help with: None Currently or been in a relationship where the following occur: No concerns reported THRIVE Score: 0 AUDIT C Alcohol Use Questionnaire (AUDIT-C) 1. How often do you have a drink containing alcohol?: Monthly or less 3. How often do you have six or more drinks on one occasion?: Never Total Score: 1 OTTO-7 AMB Questionnaire OTTO-7 Date OTTO - 7 assessed: 12/19/24 Feeling nervous, anxious, or on edge: 0 = Not at all Not being able to stop or control worryin = Not at all Worrying too much about different things: 0 = Not at all Trouble relaxin = Not at all Being so restless that it is hard to sit still: 0 = Not at all Becoming easily annoyed or irritable: 0 = Not at all Feeling afraid as if something awful might happen: 0 = Not at all Total OTTO-7 score (0-4 normal; 5-9 mild; 10-14 moderate; 15-21 severe): 0 Source: Developed by Drs. Collin Mccartney, Paloma Anthony, Donald Campuzano and colleagues, with an educational sandro from [employer]. Physical exam (Primary Care) Vital Signs: Last Vital Signs Temp 97.1 F 12/19/24 08:36 Pulse 71 12/19/24 08:36 Resp 20 12/19/24 08:36 BP 128/78 12/19/24 08:36 BMI result Body Mass Index 24.1 Tobacco/Smoking Status: Tobacco use Status Tobacco use date assessed 12/19/24 12/19/24 08:38 Patient Tobacco Use Status Never used Tobacco 12/19/24 08:38 Tobacco use type Cigar 12/19/24 08:46 PHQ-9: PHQ-9 Score PHQ-9: Total score 1 12/19/24 08:38 Thrive Assessment: Date of Thrive Assessment Date Thrive assessed 12/19/24 12/19/24 08:46 Currently or been in a relationship where the following occur: No concerns reported Coding Level of Care Code Est Pt Level 4 (76714) Diagnoses Gilbert's syndrome E80.4 Leukopenia, unspecified type D72.819 Leukopenia type: unspecified Erythropenia D64.9 Low hemoglobin and low hematocrit D64.9 Assessment & Plan Assessment & Plan (1) Gilbert's syndrome: Code(s): E80.4 - Gilbert syndrome (2) Leukopenia: Code(s): D72.819 - Decreased white blood cell count, unspecified Qualifiers: Leukopenia type: unspecified Qualified Code(s): D72.819 - Decreased white blood cell count, unspecified (3) Erythropenia: Code(s): D64.9 - Anemia, unspecified (4) Low hemoglobin and low hematocrit: Code(s): D64.9 - Anemia, unspecified Plan
--- OUTSIDE RECORDS SUMMARY | 2024-12-19 09:08 | XMS_ITS | Encounter Summary ---
Author Organization [facility] Address [address] [place] [id number] Phone Care Team Providers Care Profiling Machine Set Up Operator Tool Name Role Phone Bob Duvall MD Unavailable [phone] oBb Duvall MD Primary Care Provider [phone] Bob Duvall MD Unavailable [phone] Encounter Details Date Type Department Care Team (Latest Contact Info) Description 02/10/2022 Transcribe Orders [facility] [address] [place], [place] [id number] Guy Huntley MD [address] [facility] [address] [place], [place] [id number] [email or web address] Gilbert's syndrome (Primary Dx) Social History Tobacco [...] high school, GED, job training, learning the Romansh language, technical skills, or developing parenting skills)? [...] EST) LDH 138 118 - 273 U/L [facility] Blood 02/17/2022 7:51 AM EST 02/17/2022 7:56 AM EST us Guy Huntley MD LAB BLOOD ORDERABLES Final R esult [facility] [address] [place] [address] * C-Reactive Protein (02/17/2022 7:51 AM EST) C REACTIVE PROTEIN <3.0 0.0 - 4.0 mg/L [facility] Blood 02/17/2022 7:51 AM EST 02/17/2022 7:56 AM EST us Guy Huntley MD LAB BLOOD ORDERABLES Final R esult [address] [address] * (ABNORMAL) Comprehensive metabolic panel (02/17/2022 7:51 AM EST) SODIUM 142 133 - 146 mmol/L [facility] POTASSIUM 4.3 3.3 - 5.1 mmol/L [facility] CHLORIDE 103 96 - 108 mmol/L [facility] CO2 30 21 - 35 mmol/L [facility] BUN 10 6 - 19 mg/dL [facility] CREATININE 0.80 0.5 - 1.5 mg/dL [facility] GLUCOSE 94 70 - 99 mg/dL [facility] ALBUMIN 4.5 3.9 - 4.8 g/dL [facility] TOTAL PROTEIN 6.9 6.5 - 8.0 g/dL [facility] CALCIUM 9.6 8.4 - 10.3 mg/dL [facility] ALKALINE PHOSPHATASE 62 39 - 117 U/L [facility] TOTAL BILIRUBIN 2.5(H) 0.0 - 1.2 mg/dL [facility] AST 23 0 - 37 U/L [facility] ALT 26 0 - 40 U/L [facility] GLOBULIN 2.4 1 - 4.8 g/dL [facility] EGFR 117 >59 mL/min/1.7 3m2 [facility] Comment:Estimated glomerular filtration rate calculated using the CKD-EPI refit equation. ANION GAP 13 10 - 20 mmol/L [facility] Blood 02/17/2022 7:51 AM EST 02/17/2022 7:56 AM EST us Guy Huntley MD LAB BLOOD ORDERABLES Final R esult [address] [address] * Miscellaneous lab test (02/10/2022 2:51 PM EST) TESTS REQUESTED [facility] SPECIMEN/TUBE TYPE LAV [facility] REQUEST RECEIVED Request received. A separate order for the requested test will be generated by the laboratory. [facility] Blood 02/10/2022 2:51 PM EST 02/10/2022 3:09 PM EST Guy Huntley MD LAB BLOOD ORDERABLES Final R esult Performing Organization Address [facility] Co de Phone Number [facility] [address] [place] [address] * Haptoglobin (02/10/2022 2:51 PM EST) HAPTOGLOBIN 71 30 - 200 mg/dL [facility] Blood 02/10/2022 2:51 PM EST 02/10/2022 2:57 PM EST Guy Huntley MD LAB BLOOD ORDERABLES Final R esult Performing Organization Address [facility] Co de Phone Number [address] [address] * Direct Hermelinda (02/10/2022 2:51 PM EST) Direct Hermelinda Poly Negative [facility] Resulting Agency [facility] Blood 02/10/2022 2:51 PM EST 02/10/2022 3:10 PM EST Guy Huntley MD BLOOD BANK TEST ORDERABLES F inal Result Performing Organization Address [facility] Co de Phone Number [facility] [address] [place] [address] * (ABNORMAL) Copper, blood (02/10/2022 2:51 PM EST) Copper, serum 70(L) 73 - 129 mcg/dL [facility] Comment: (NOTE) ADDITIONAL INFORMATION This test was developed and its performance characteristics determined by [facility] in a manner consistent with CLIA requirements. This test has not been cleared or approved by the U.S. Food and Drug Administration. Blood 02/10/2022 2:51 PM EST 02/10/2022 3:09 PM EST Guy Huntley MD LAB BLOOD ORDERABLES Final R esrust [facility] [address] [place] [address] * CBC (02/10/2022 2:51 PM EST) WBC 6.78 4.00 - 11.00 K/uL [facility] RBC 4.70 4.23 - 5.82 M/uL [facility] HGB 14.7 13.4 - 17.5 g/dL [facility] HCT 44.3 37.0 - 51.0 % [facility] PLT 326 140 - 430 K/uL [facility] MCV 94.3 78.0 - 97.0 fL [facility] MCH 31.3 25.0 - 33.0 pg [facility] MCHC 33.2 32.0 - 36.0 g/dL [facility] RDW 11.6 11.0 - 15.0 % [facility] MPV 10.9 8.4 - 12.8 fl [facility] Blood 02/10/2022 2:51 PM EST 02/10/2022 3:09 PM EST us Guy Huntley MD LAB BLOOD ORDERABLES Final R esult [facility] [address] [place] [address] * Reticulocytes (02/10/2022 2:51 PM EST) RETIC (%) 1.9 0.6 - 1.9 % [facility] RETIC (ABSOLUTE) 0.0893 0.0260 - 0.0950 M/uL [facility] RETIC HGB EQUIV 35.3 30.6 - 40.7 pg [facility] Retics, immature(%) 5.9 2.3 - 13.4 % [facility] Blood 02/10/2022 2:51 PM EST 02/10/2022 3:09 PM EST us Guy Huntley MD LAB BLOOD ORDERABLES Final R esult [facility] [address] [place] [address] documented in this encounter Visit Diagnoses Diagnosis Gilbert's syndrome- Primary Disorders of bilirubin excretion documented in this encounter Additional Health Concerns Assessment Noted Time PHQ-2 Depression Total Score: 0 08/19/19 22 9:00 AM EDT documented as of this encounter Care Teams Profiling Machine Set Up Operator Tool Relationship Specialty Start Date End Date Bob Duvall MD [address] [facility], [address] [place] [id number] PCP - General 12/29/16 10/20/24 Bob Duvall MD [address] [facility], [address] [address] Historical LMR Provider 12/29/16 10/20/24 Bob Duvall MD [address] [place] [address], [address] [address] Insurance Assigned Provider 07/19/22 documented as of this encounter Additional Source Comments The information contained in this document represents components of the legal health record. It is not the complete legal health record.[facility]
--- OUTSIDE RECORDS SUMMARY | 2024-12-19 09:08 | XMS_ITS | Clinical Summary ---
Author Organization [facility] Address [address] [place] [phone] Phone Care Team Providers Care Director Medical Economics Name Role Phone Unavailable Primary Care Provider Unavailabl e Allergies No known active allergies Medications methylphenidate HCl (RITALIN ORAL) Take by mouth. Active diazePAM (VALIUM) 5 MG tabletIndication s:Situational anxiety Take 1 tablet (5 mg total) by mouth daily as needed for anxiety. 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 No history of liver disease, LFTs are normal. We will recheck in 2 months. August 2021: Recheck. Prev bili was 4.1, a little high for gilberts. October 2021: Bili now 5.9, expand w/u, u/s liver, GI referral. Ceruloplasmin level is 14 on repeat testing x2. 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 Tourette syndrome 11/10/2017 Overview (11/10/2017): eval by Dr Rosenberg in 2017. Attention deficit disorder (ADD) without hyperac tivity 11/10/2017 Immunizations Immunization Administration Dates Next Due COVID-19 (Pre-01/05) Moderna Vaccine, mRNA, PF 03/11/2021,04/05/2020,03/08/2020 Hepatitis B 06/17/1996,02/26/1996,01/29/1996 Influenza, Unspecified Formulation 12/28/2018, MMR 07/06/1996,07/27/1985 Tdap 02/07/2013 Family History Medical History Relation Comments Prostate cancer Father Relation Status Comments Father Social History Tobacco Use Types Packs/Day Years [...] Answer Date Recorded Are you interested in more education? Not on rosy e 08/26/2022 Are you concerned about learning? Not on file 08/26/2022 No 08/26/2022 No 08/26/2022 Food Answer Date Recorded Within the past [...] basis, and looking for work? No 08/21/2020 Digital Access Answer Date Recorded No 08/08/2022 No 08/08/2022 Reliable internet access at home? Not on file 08/08/2022 Device with a working camera? Not on file Sex and Gender Information Value Date Recorded Sex Assigned at Not on file Legal Sex Male 9:15 PM EDT Gender Identity Not on file Sexual Orientation Not on file Last Filed Vital Signs Vital Sign Reading Time Taken Comments Blood Pressure 112/78 10/15/2021 3:54 PM EDT Pulse 86 10/15/2021 3:54 PM EDT Temperature 36.4 C (97.5 F) 08/20/2021 3:25 PM EDT Respiratory Rate - - Oxygen Saturation 99% 10/15/2021 3:54 PM EDT Inhaled Oxygen Concentration - - Weight 76.7 kg (169 lb) 08/20/2021 3:25 PM EDT Height 178.6 cm (5' 10.32 ) 08/20/2021 3:25 PM E DT Body Mass Index 24.03 08/20/2021 3:25 PM EDT Plan of Treatment Health Maintenance Due Date Last Done Comments DEPRESSION SCREENING 08/18/2022 08/18/2021 Adult Td,Tdap Booster 02/07/2023 02/07/2013 INFLUENZA VACCINE (#1) 2024 12/28/2018, 2016 COVID-19 VACCINE ( season) 2024 03/11/2021, 04/05/2020, 03/08/2020 LIPID PANEL 11/04/2026 11/04/2021, 10/15, 02/20/2020, Additional history exists HIV ONE-TIME SCREENING (18-65 YEARS) Completed 08/09/2021 SMOKING STATUS SCREENING (Once After 26 Yrs) Completed 08/20/2021 HEPATITIS C SCREENING Completed 12/19/2021 , 11/11/2021, 11/11/2021, Additional history exists HEPATITIS A VACCINES Aged Out No long er eligible based on patient's age to complete this topic HIB VACCINES Aged Out No longer eligi ble based on patient's age to complete this topic MENINGOCOCCAL VACCINES (ACWY) Aged Out No longer eligible based on patient's age to complete this topic MENINGOCOCCAL VACCINES (B) Aged Out N o longer eligible based on patient's age to complete this topic PNEUMOCOCCAL VACCINES (0-49 years) Aged Out No longer eligible based on patient's age to complete this topic Medical Devices Not on file Procedures Procedure Name Priority Date/Time Associated Diagnosis Comments LIVER FIBROSIS TEST Routine 12/19/2021 1 :51 PM EDT Elevated LFTs LIPID PANEL Routine 11/04/2021 7:43 AM EDT Annual physical exam from Last 3 Months or Most Recently Relevant to Health Maintenance Results * (ABNORMAL) Liver fibrosis test (12/19/2021 1:51 PM EDT) Fibrosis score 0.35 [facility] Interpretation (Fibrosis) SEE NOTE [facility] Comment: (NOTE) minimal fibrosis Fibro Test [...] Fibrosis Grade SEE NOTE Q [facility] Comment: (NOTE) Result: F1-F2 NECROINFLAMM SCORE 0.13 Q [facility] NECROINFLAMM GRADE A0 Q [facility] NECROINFLAMM INTERP SEE NOTE [facility] Comment: (NOTE) no activity ActiTest Score [...] A2 Macroglobulin 199 106 - 279 mg/dL [facility] Haptoglobin 92 43 - 212 mg/dL [facility] Apolipoprotein A1 163 94 - 176 mg/dL [facility] TOTAL BILIRUBIN 3.8(H) 0.2 - 1.2 mg/dL [facility] Comment: (NOTE) Suspicion of Gilbert syndrome or hemolysis, check non conjugated bilirubin. GGT 9 3 - 90 U/L [facility] Comment: (NOTE) Suspicion of Gilbert syndrome or hemolysis, check non conjugated bilirubin. ALT 26 9 - 46 U/L [facility] Specimen/Product ID [id number] [facility] Comments (Chemistry) SEE NOTE [facility] Comment: (NOTE) The reliability of results is dependent on compliance with the preanalytical and analytical conditions recommended by [employer]. The tests have to be deferred for: [...] The performance characteristics have been determined by [employer]. It has not been cleared or approved by the U.S. Food and Drug Administration. Performance characteristics refer to the analytical performance of the test. [employer], the associated logo, [employer] and all associated [employer] are the registered trademarks of [employer]. All third constitution party garduno - (R) and (TM) - are the property of their respective owners. (C) [id number] [employer]. All rights reserved. Blood 12/19/2021 1:51 PM EDT 12/19/2021 1:58 PM EDT us Glenny Olivares PA-C LAB BLOOD ORDERABLES Final Resu lt Performing Organization Address City/[facility]/ZIP Co de Phone Number [facility] [address] [place] [address] * (ABNORMAL) Lipid panel (11/04/2021 7:43 AM EDT) HDL 57 mg/dL [facility] Comment: Interpretation <40 mg/dL: Low HDL cholesterol (major risk factor for CHD) Greater than or equal to 60 mg/dL: High HDL cholesterol ( negative risk factor for CHD) HDL - cholesterol is affected by a number of factors, e.g. smoking, excerise, hormones, sex and age. CHOLESTEROL 129 0 - 240 mg/dL [facility] TRIGLYCERIDES 83 30 - 160 mg/dL [facility] LDL 55 50 - 129 mg/dL [facility] Comment: LDL levels in terms of risk for coronary heart disease: <100 mg/dL: Optimal 100-129 mg/dL: Near or above optimal 130-159 mg/dL: Borderline high 160-189 mg/dL: High >190 mg/dL: Very High CARDIAC RISK RATIO 2.3(L) 3.4 - 5.0 [facility] Blood 11/04/2021 7:43 AM EDT 11/04/2021 7:45 AM EDT us Bob Duvall MD LAB BLOOD ORDERABLES Final Resu lt Performing Organization Address City/[facility]/ZIP Co de Phone Number [facility] [address] [place] [address] from Last 3 Months or Most Recently Relevant to Health Maintenance Insurance [facility] HMO POS [facility] H[facility] POS Additional Source Comments The information contained in this document represents components of the legal health record. It is not the complete legal health record.[facility]
--- OUTSIDE RECORDS SUMMARY | 2024-12-19 09:08 | XMS_ITS | Encounter Summary ---
Author Organization [facility] Address [address] [address] Phone Care Team Providers Care Science Professor Name Role Phone Bob Duvall MD Unavailable [phone] Bob Duvall MD Primary Care Provider [phone] Bob Duvall MD Unavailable [phone] Encounter Details Date Type Department Care Team (Late st Contact Info) Description 12/27/2021 Transcribe Orders [facility] Specimen Processing [address] [place] [address] Glenny Olivares PA-C [address] [place] [address] Social History Tobacco Use Types Packs/Day Years [...] high school, GED, job training, learning the Hebrew language, technical skills, or developing parenting skills)? [...] documented as of this encounter Care Teams Science Professor Relationship Specialty Start Date End Date Bob Duvall MD [address] [place] [address], [address] [place] [address] PCP - General 12/29/16 10/20/24 Bob Duvall MD [address] [place] [address], [address] [place] [address] Historical LMR Provider 12/29/16 10/20/24 Bob Duvall MD [address] [place] [address], [address] [place] [address] [email or web address] Insurance Assigned Provider 07/19/22 documented as of this encounter Additional Source Comments The information contained in this document represents components of the legal health record. It is not the complete legal health record.[facility]
--- OUTSIDE RECORDS SUMMARY | 2024-12-19 09:08 | XMS_ITS | Encounter Summary ---
Author Organization [facility] Address [address] [place] [address] Phone Care Team Providers Care Health Promoter Name Role Phone Bob Duvall MD Unavailable [phone] Bob Duvall MD Primary Care Provider [phone] Bob Duvall MD Unavailable [phone] Encounter Details Date Type Department Care Team (Latest Contact Info) Description 12/19/2021 Transcribe Orders [facility] Laboratory [address] [facility] [address] [place] [address] Glenny Olivares PA-C [address] [place], [place] [id number] Elevated LFTs (Primary Dx) Social History Tobacco [...] high school, GED, job training, learning the Kazakh language, technical skills, or developing parenting skills)? [...] COPPER <5(L) 9 - 71 mcg/24 h [facility] COLLECTION DURATION 24 h [facility] TOTAL VOLUME 3,000 mL [facility] Comment: (NOTE) ADDITIONAL INFORMATION This test was developed and its performance characteristics determined by [facility] in a manner consistent with CLIA requirements. This test has not been cleared or approved by the U.S. Food and Drug Administration. Urine (Urine) 12/26/2021 6:4 0 AM EDT 12/27/2021 8:10 AM EDT us Glenny Olivares PA-C URINE ORDERABLES Final Result [facility] [address] [place] [address] * TSH (12/19/2021 1:51 PM EDT) Pathologist [facility] TSH 0.84 0.27 - 4.20 uIU/mL [facility] Blood 12/19/2021 1:51 PM EDT 12/19/2021 1:58 PM EDT us Glenny Olivares PA-C LAB BLOOD ORDERABLES Final Resu lt Performing Organization Address [facility]/ZIP Co de Phone Number [address] [address] * Iron and iron binding capacity (12/19/2021 1:51 PM EDT) [facility] IRON 113 45 - 160 ug/dL [facility] IRON BINDING CAPACITY 270 228 - 428 ug/dL [facility] TRANSFERRIN SATURAT. 42 20 - 55 % [facility] Blood 12/19/2021 1:51 PM EDT 12/19/2021 1:58 PM EDT us Glenny Olivares PA-C LAB BLOOD ORDERABLES Final Resu lt Performing Organization Address [facility]/ZIP Co de Phone Number [address] [address] * (ABNORMAL) Comprehensive metabolic panel (12/19/2021 1:51 PM EDT) [facility] SODIUM 143 133 - 146 mmol/L [facility] POTASSIUM 3.8 3.3 - 5.1 mmol/L [facility] CHLORIDE 104 96 - 108 mmol/L [facility] CO2 30 21 - 35 mmol/L [facility] BUN 14 6 - 19 mg/dL [facility] CREATININE 0.80 0.5 - 1.5 mg/dL [facility] GLUCOSE 73 70 - 99 mg/dL [facility] ALBUMIN 4.9(H) 3.9 - 4.8 g/dL [facility] TOTAL PROTEIN 7.0 6.5 - 8.0 g/dL [facility] CALCIUM 9.7 8.4 - 10.3 mg/dL [facility] ALKALINE PHOSPHATASE 68 39 - 117 U/L [facility] TOTAL BILIRUBIN 3.5(H) 0.0 - 1.2 mg/dL [facility] AST 37 0 - 37 U/L [facility] ALT 28 0 - 40 U/L [facility] GLOBULIN 2.1 1 - 4.8 g/dL [facility] EGFR 117 >59 mL/min/1.7 3m2 [facility] Comment:Estimated glomerular filtration rate calculated using the CKD-EPI refit equation. ANION GAP 13 10 - 20 mmol/L [facility] Blood 12/19/2021 1:51 PM EDT 12/19/2021 1:58 PM EDT us Glenny Olivares PA-C LAB BLOOD ORDERABLES Final Resu lt Performing Organization Address City/State/[facility] Co de Phone Number [address] [address] * (ABNORMAL) Liver fibrosis test (12/19/2021 1:51 PM EDT) Fibrosis score 0.35 [facility] Interpretation (Fibrosis) SEE NOTE [facility] Comment: (NOTE) minimal fibrosis Fibro Test Score [...] Grade SEE NOTE Q [facility] Comment: (NOTE) Result: F1-F2 NECROINFLAMM SCORE 0.13 Q [facility] NECROINFLAMM GRADE A0 Q [facility] NECROINFLAMM INTERP SEE NOTE [facility] Comment: (NOTE) no activity ActiTest Score (a) [...] A2 Macroglobulin 199 106 - 279 mg/dL [facility] Haptoglobin 92 43 - 212 mg/dL [facility] Apolipoprotein A1 163 94 - 176 mg/dL [facility][1]/ [facility] TOTAL BILIRUBIN 3.8(H) 0.2 - 1.2 mg/dL [facility] Comment: (NOTE) Suspicion of Gilbert syndrome or hemolysis, check non conjugated bilirubin. GGT 9 3 - 90 U/L [facility] Comment: (NOTE) Suspicion of Gilbert syndrome or hemolysis, check non conjugated bilirubin. ALT 26 9 - 46 U/L [facility] Specimen/Product ID [id number] [facility] Comments (Chemistry) SEE NOTE [facility] Comment: (NOTE) The reliability of results is dependent on compliance with the preanalytical and analytical conditions recommended by [employer]. The tests have to be deferred for: [...] The performance characteristics have been determined by [facility] [facility]. It has not been cleared or approved by the U.S. Food and Drug Administration. Performance characteristics refer to the analytical performance of the test. [employer], the associated logo, [employer] and all associated [employer] are the registered trademarks of [employer]. All third alliance party [employer]uno - (R) and (TM) - are the property of their respective owners. (C) [id number] [employer]. All rights reserved. Blood 12/19/2021 1:51 PM EDT 12/19/2021 1:58 PM EDT Glenny Olivares PA-C LAB BLOOD ORDERABLES Final Resu lt [employer] [facility] [address] [place] [address], [facility] * (ABNORMAL) Ceruloplasmin (12/19/2021 1:51 PM EDT) CERULOPLASMIN 16(L) 20 - 60 mg/dL [facility] Blood 12/19/2021 1:51 PM EDT 12/19/2021 1:58 PM EDT Glenny ROME-Senia LAB BLOOD ORDERABLES Final Resu lt [facility] [address] [place] [address] * Immunoglobulin A (12/19/2021 1:51 PM EDT) IgA 268 70 - 400 mg/dL [facility] Blood 12/19/2021 1:51 PM EDT 12/19/2021 1:58 PM EDT us Glenny Olivares PA-C LAB BLOOD ORDERABLES Final Resu lt [facility] [address] [place] [address] * Tissue transglutaminase IgA (12/19/2021 1:51 PM EDT) TTG IGA ANTIBODY <1.2 <4.0 (Negative) U/mL [facility] Blood 12/19/2021 1:51 PM EDT 12/19/2021 1:58 PM EDT us Glenny Olivares PA-C LAB BLOOD ORDERABLES Final Resu lt Performing Organization Address [facility] Co de Phone Number [facility] [address] [place] [address] * Smooth Muscle Antibody (12/19/2021 1:51 PM EDT) SMOOTH MUSCLE AB POSITIVE AT 1:80 [facility] Comment: Performing Physician, Klaus García M.D., [id number] Normal: Negative at 1:20 Blood 12/19/2021 1:51 PM EDT 12/19/2021 1:58 PM EDT Glenny Olivares PA-C LAB BLOOD ORDERABLES Final Resu lt Performing Organization Address City/[facility]/ZIP Co de Phone Number [address] [address] * Sengy-0-kbsakgormcg phenotyping (12/19/2021 1:51 PM EDT) ALPHA 1 ANTITRYPSIN 127 100 - 190 mg/dL [facility] Comment: (NOTE) ADDITIONAL INFORMATION Method: Nephelometry A1A PHENOTYPE MM bands [facility] [place] [facility] Comment: (NOTE) A single M isoform is detected. In the context of a normal algvd-4-fieeastsvbz concentration, this is consistent with an MM phenotype. ADDITIONAL INFORMATION Method: Isoelectric Focusing, This assay identifies the phenotype of the circulating rymzy-7-upkdntxtkhl (A1A) protein. If the patient is on replacement therapy or has been recently transfused, the phenotype will detect patient and replacement or transfused plasma A1A protein. This test also cannot detect a null allele which could be responsible for an A1A deficiency. Blood 12/19/2021 1:51 PM EDT 12/19/2021 1:58 PM EDT us Glenny Olivares PA-C LAB BLOOD ORDERABLES Final Resu lt [facility] [address] [place] [address] documented in this encounter Visit Diagnoses Diagnosis Elevated LFTs- Primary Other abnormal blood chemistry documented in this encounter Additional Health Concerns Assessment Noted Time PHQ-2 Depression Total Score: 0 08/19/19 22 9:00 AM EDT documented as of this encounter Care Teams Health Promoter Relationship Specialty Start Date End Date Bob Duvall MD [address] [place] [address], [address] [address] PCP - General 12/29/16 10/20/24 Bob Duvall MD [address] [place] [address], [address] [place] [address] Historical LMR Provider 12/29/16 10/20/24 Bob Duvall MD [address] [place] [address], [address] [place] [address] Insurance Assigned Provider 07/19/22 documented as of this encounter Additional Source Comments The information contained in this document represents components of the legal health record. It is not the complete legal health record.[facility]
== END 2024-12-19 09:00 | disposition home or self-care (01) ==
LOC: HO.HMCFMS 08:32
PROVIDERS: PCP Student in an Organized Health Care Education/Training Program; Visit Provider Student in an Organized Health Care Education/Training Program
DX: E80.4 Gilbert syndrome (principal); D72.819 Decreased white blood cell count, unspecified; D64.9 Anemia, unspecified